=== PATIENT | male | born 1995 | race African-American/Black ===

== ENCOUNTER 2021-01-06 19:38 | Emergency (ER) | payer OTHER ==
[~2021-01-06] VITALS: Ht 180.3 cm; Wt 86.2 kg
== END 2021-01-06 21:44 | disposition home or self-care (01) ==
LOC: ER 19:38
DX: S62.612A Displaced fracture of proximal phalanx of right middle finger, initial encounter for closed fracture (principal); W22.8XXA Striking against or struck by other objects, initial encounter
CPT/HCPCS: 29130; 73130; 99283-25